=== PATIENT | male | born 1990 | race Caucasian/White ===

== ENCOUNTER 2017-05-20 18:17 | Emergency (ER) | payer OTHER ==
[~2017-05-20] VITALS: Ht 182.9 cm; Wt 113.6 kg
[~2017-05-20 18:17] MED LIST: AMOXICILLIN 50500 MG PO; NORCO 325 MG-7.1 TAB PO
[2017-05-20 18:20] VITALS: BP 127/82; TEMP 99
[2017-05-20] MEDS ORDERED: NORCO 325 MG-51 TAB PO (19:06)
[2017-05-20 19:32] VITALS: PULSE 97
== END 2017-05-20 19:20 | disposition home or self-care (01) ==
LOC: COL.ER 18:17
DX: S60.511A Abrasion of right hand, initial encounter (principal); T25.622A Corrosion of second degree of left foot, initial encounter; T25.621A Corrosion of second degree of right foot, initial encounter; T24.602A Corrosion of second degree of unspecified site of left lower limb, except ankle and foot, initial encounter; T24.601A Corrosion of second degree of unspecified site of right lower limb, except ankle and foot, initial encounter; T65.891A Toxic effect of other specified substances, accidental (unintentional), initial encounter; S60.351A Superficial foreign body of right thumb, initial encounter; S60.551A Superficial foreign body of right hand, initial encounter; X08.8XXA Exposure to other specified smoke, fire and flames, initial encounter; V64.5XXA Driver of heavy transport vehicle injured in collision with heavy transport vehicle or bus in traffic accident, initial encounter; Y92.411 Interstate highway as the place of occurrence of the external cause; Z23 Encounter for immunization

== ENCOUNTER 2018-03-27 02:54 | Emergency (ER) | payer SELFPAY ==
[~2018-03-27] VITALS: Ht 180.3 cm; Wt 131.8 kg
[~2018-03-27 02:54] MED LIST changes: +NORCO 325 MG-51 TAB PO
[2018-03-27 02:57] VITALS: BP 168/97; PULSE 71; TEMP 97.4
[2018-03-27] MEDS ORDERED: NORCO 325 MG-7.1 TAB PO (03:15)
[2018-03-27] MEDS ORDERED: AMOXICILLIN 50500 MG PO (03:15)
== END 2018-03-27 03:32 | disposition home or self-care (01) ==
LOC: COL.ER 02:54
DX: K02.9 Dental caries, unspecified (principal); F17.210 Nicotine dependence, cigarettes, uncomplicated